=== PATIENT | male | born 1995 | race Caucasian/White ===

== ENCOUNTER → 2016-11-04 | Outpatient (CLI) | payer OTHER ==
[2016-11-04 12:32] LABS: BILIRUBIN,URINE NEGATIVE (NEGATIVE); KETONES,URINE NEGATIVE (NEGATIVE); LEUKOCYTE ESTERASE ,URINE NEGATIVE (NEGATIVE); NITRITE,URINE NEGATIVE (NEGATIVE); PH,URINE 7 (5-9); PROTEIN,URINE NEGATIVE (NEGATIVE); UROBILINOGEN,URINE NORMAL (NORMAL)
[2016-11-04 12:33] LABS: BASOPHILS % (AUTO) 0 % (0-10); EOSINOPHILS # (AUTO) 0.2 10^3/uL (0.0-0.3); EOSINOPHILS % (AUTO) 2 % (0-10); LYMPHOCYTES # (AUTO) 1.7 X 10^3 (1.0-4.0); LYMPHOCYTES % (AUTO) 19 % (12-44); MEAN CORPUSCULAR HEMOGLOBIN 29 PG (25-34); MEAN CORPUSCULAR HGB CONC 35 G/DL (32-36); MEAN CORPUSCULAR VOLUME 83 FL (80-99); MEAN PLATELET VOLUME 10.4 FL (7.4-10.4); MONOCYTES # (AUTO) 0.7 X 10^3 (0.0-1.0); MONOCYTES % (AUTO) 8 % (0-12); NEUTROPHILS # (AUTO) 6.4 X 10^3 (1.8-7.8); NEUTROPHILS % (AUTO) 71 % (42-75); PLATELET COUNT 234 10^3/uL (130-400); RED BLOOD COUNT 5.75 10^6/uL (4.35-5.85); RED CELL DISTRIBUTION WIDTH 12.5 % (10.0-14.5)
[2016-11-04 12:49] LABS: WBC,URINE RARE /HPF
[2016-11-04 13:00] LABS: ALANINE AMINOTRANSFERASE 22 U/L (0-55); ANION GAP 9 MMOL/L (5-14); ASPARTATE AMINO TRANSFERASE 20 U/L (5-34); BILIRUBIN,TOTAL 0.8 MG/DL (0.1-1.0); BLOOD UREA NITROGEN 14 MG/DL (7-18); BUN/CREATININE RATIO 13; CALCIUM 9.7 MG/DL (8.5-10.1); CARBON DIOXIDE 27 MMOL/L (21-32); CHLORIDE 105 MMOL/L (98-107); CHOLESTEROL 200 MG/DL (< 200); CREATININE SERUM 1.04 MG/DL (0.60-1.30); DIRECT LDL 144 MG/DL (1-129); GFR ESTIMATED > 60; GLUCOSE 85 MG/DL (70-105); POTASSIUM 3.8 MMOL/L (3.6-5.0); SODIUM 141 MMOL/L (135-145); TRIGLYCERIDES 128 MG/DL (<150); VLDL CHOLESTEROL 26 MG/DL (5-40)
[2016-11-04 13:19] LABS: THYROID STIMULATING HORMONE 1.06 UIU/ML (0.35-4.94)
[2016-11-05 07:09] LABS: HIV 1/2 INTERP See Footnote; HIV AG AB SCREEN Non-Reactive (Non-Reactive); SYPHILIS SCREEN PT Non-Reactive
[2016-11-06 15:39] LABS: NEISSERIA GONORRHEA DNA URINE Negative (Negative)
[2016-11-06 15:45] LABS: CHLAMYDIA DNA URINE Negative (Negative)
== END ==
LOC: LAB 11:58
PROVIDERS: ATTEND Family Medicine
DX: Z00.00 Encounter for general adult medical examination without abnormal findings (principal); E78.5 Hyperlipidemia, unspecified; Z83.3 Family history of diabetes mellitus; Z83.0 Family history of human immunodeficiency virus [HIV] disease; R03.0 Elevated blood-pressure reading, without diagnosis of hypertension
CPT/HCPCS: 36415; 80053; 80061; 81000; 84443; 85025; 86703; 86780; 87491; 87591

== ENCOUNTER 2017-06-04 14:15 | Day surgery (SDC) | payer OTHER ==
[~2017-06-04] VITALS: Ht 177.8 cm; Wt 94.8 kg
[2017-06-04] MEDS ORDERED: METO-370 PO (15:01)
[2017-06-04] MEDS ORDERED: IOHEXOL 350 MG/ML 100 ML (OMNIPAQUE 350) VIAL IV ONE (15:30)
[2017-06-04] MEDS ORDERED: NS 100 ML (IVPB) BAG IV ONE (15:30)
[2017-06-04 16:05] LABS: BASOPHILS % (AUTO) 0 % (0-10); EOSINOPHILS # (AUTO) 0.1 10^3/uL (0.0-0.3); EOSINOPHILS % (AUTO) 1 % (0-10); LYMPHOCYTES % (AUTO) 17 % (12-44); MEAN CORPUSCULAR HEMOGLOBIN 29 PG (25-34); MEAN CORPUSCULAR HGB CONC 35 G/DL (32-36); MEAN CORPUSCULAR VOLUME 83 FL (80-99); MEAN PLATELET VOLUME 10.3 FL (7.4-10.4); MONOCYTES # (AUTO) 0.9 X 10^3 (0.0-1.0); MONOCYTES % (AUTO) 8 % (0-12); NEUTROPHILS # (AUTO) 8.6 X 10^3 (1.8-7.8); NEUTROPHILS % (AUTO) 74 % (42-75); PLATELET COUNT 248 10^3/uL (130-400); RED BLOOD COUNT 5.41 10^6/uL (4.35-5.85); RED CELL DISTRIBUTION WIDTH 12.2 % (10.0-14.5); WHITE BLOOD COUNT 11.7 10^3/uL (4.3-11.0)
--- NOTE | 2017-06-04 16:11 | ED Abdominal Pain ---
General Chief Complaint: Abdominal/GI Problems Stated Complaint: PAIN IN APPENDIX Nursing Triage Note: PT C/O RLQ ABDOMINAL PAIN STARTING YESTERDAY MORNING. REPORTS PAIN WITH WALKING. DENIES NAUSEA, VOMITING. Sepsis Screen: No Definite Risk History of Present Illness Time Seen By Provider: 15:10 Initial Comments 22-year-old male presents for right lower quadrant pain. He reports that it began yesterday morning and has progressively gotten worse. He has had mild nausea and vomited once. He denies any diarrhea. Timing/Duration: 1-2 Days Severity/Quality: Moderate Location: RLQ Radiation: No Radiation Activities at Onset: None Modifying Factors: Improves With Resting Associated Symptoms: Nausea/Vomiting Allergies and Home Medications Allergies Coded Allergies: Penicillins (Unverified Allergy, Unknown, 06/04/17) kiwi (Verified Allergy, Unknown, Severe Rash, 06/04/17) tree nut (Unverified Allergy, Unknown, 06/04/17) Home Medications Cetirizine HCl 10 Mg Capsule, 10 MG PO HS PRN for allergies, (Reported) Metoprolol Succinate 50 Mg Tab.er.24h, 50 MG PO DAILY, (Reported) Review of Systems Constitutional: no symptoms reported, see HPI Gastrointestinal: See HPI, Abdominal Pain, Nausea, Poor Appetite, Rectal Bleeding Genitourinary: No Symptoms Reported, See HPI All Other Systems Reviewed Negative Unless Noted: Yes Past Bddoala-Bkxdue-Ysuhny Hx Patient Social History Recent Foreign Travel: No Contact w/Someone Who Travel: No Recent Infectious Disease Expo: No Recent Hopitalizations: No Seasonal Allergies Seasonal Allergies: No Surgeries History of Surgeries: Yes (DENTAL) Respiratory History of Respiratory Disorde: No Cardiovascular History of Cardiac Disorders: Yes Cardiac Disorders: Hypertension Neurological History of Neurological Disord: No Reproductive System Sexually Transmitted Disease: No HIV/AIDS: No Genitourinary History of Genitourinary Disor: No Gastrointestinal History of Gastrointestinal Di: No Musculoskeletal History of Musculoskeletal Dis: No Endocrine History of Endocrine Disorders: No HEENT History of HEENT Disorders: No Cancer History of Cancer: No Psychosocial History of Psychiatric Problem: No Blood Transfusions History of Blood Disorders: No Adverse Reaction to a Blood Tr: No Physical Exam Vital Signs VS - Last 72 Hours, by Label 06/04/17 14:54 Temp 99.2 Pulse 78 Resp 18 B/P (MAP) 149/72 Pulse Ox 99 O2 Delivery Room Air Capillary Refill : Less Than 3 Seconds General Appearance: WD/WN, no apparent distress HEENT: PERRL/EOMI, normal ENT inspection, TMs normal, pharynx normal Neck: non-tender, full range of motion, supple, normal inspection Respiratory: chest non-tender, lungs clear, normal breath sounds Cardiovascular: normal peripheral pulses, regular rate, rhythm, no murmur Gastrointestinal: normal bowel sounds, soft, No distended, No guarding, rebound , tenderness (right lower quadrant), other (+ heel tap, obturator, Rosving's and Psoas Sign) Neurologic/Psychiatric: no motor/sensory deficits, alert, normal mood/affect, oriented x 3 Skin: normal color, warm/dry Lymphatic: no adenopathy Progress/Results/Core Measures Results/Orders Lab Results Laboratory Tests Test 06/04/17 15:55 06/04/17 16:26 Range/Units White Blood Count 11.7 H 4.3-11.0 10^3/uL Red Blood Count 5.41 4.35-5.85 10^6/uL Hemoglobin 15.7 13.3-17.7 G/DL Hematocrit 45 40-54 % Mean Corpuscular Volume 83 80-99 FL Mean Corpuscular Hemoglobin 29 25-34 PG Mean Corpuscular Hemoglobin Concent 35 32-36 G/DL Red Cell Distribution Width 12.2 10.0-14.5 % Platelet Count 248 130-400 10^3/uL Mean Platelet Volume 10.3 7.4-10.4 FL Neutrophils (%) (Auto) 74 42-75 % Lymphocytes (%) (Auto) 17 12-44 % Monocytes (%) (Auto) 8 0-12 % Eosinophils (%) (Auto) 1 0-10 % Basophils (%) (Auto) 0 0-10 % Neutrophils # (Auto) 8.6 H 1.8-7.8 X 10^3 Lymphocytes # (Auto) 2.0 1.0-4.0 X 10^3 Monocytes # (Auto) 0.9 0.0-1.0 X 10^3 Eosinophils # (Auto) 0.1 0.0-0.3 10^3/uL Basophils # (Auto) 0.0 0.0-0.1 10^3/uL Sodium Level 141 135-145 MMOL/L Potassium Level 3.7 3.6-5.0 MMOL/L Chloride Level 103 98-107 MMOL/L Carbon Dioxide Level 25 21-32 MMOL/L Anion Gap 13 5-14 MMOL/L Blood Urea Nitrogen 8 7-18 MG/DL Creatinine 1.09 0.60-1.30 MG/DL Estimat Glomerular Filtration Rate > 60 BUN/Creatinine Ratio 7 Glucose Level 86 70-105 MG/DL Calcium Level 9.8 8.5-10.1 MG/DL Total Bilirubin 0.7 0.1-1.0 MG/DL Aspartate Amino Transf (AST/SGOT) 21 5-34 U/L Alanine Aminotransferase (ALT/SGPT) 21 0-55 U/L Alkaline Phosphatase 95 40-136 U/L Total Protein 8.4 H 6.4-8.2 GM/DL Albumin 4.8 H 3.2-4.5 GM/DL Urine Color YELLOW Urine Clarity CLEAR Urine pH 6.5 5-9 Urine Specific Blair 1.010 L 1.016-1.022 Urine Protein NEGATIVE NEGATIVE Urine Glucose (UA) NEGATIVE NEGATIVE Urine Ketones NEGATIVE NEGATIVE Urine Nitrite NEGATIVE NEGATIVE Urine Bilirubin NEGATIVE NEGATIVE Urine Urobilinogen NORMAL NORMAL MG/DL Urine Leukocyte Esterase NEGATIVE NEGATIVE Urine RBC (Auto) NEGATIVE NEGATIVE Urine RBC NONE /HPF Urine WBC NONE /HPF Urine Squamous Epithelial Cells NONE /HPF Urine Crystals NONE /LPF Urine Bacteria NEGATIVE /HPF Urine Casts NONE /LPF Urine Mucus NEGATIVE /LPF Urine Culture Indicated NO My Orders Orders - ASHLEY BOATENG Cbc With Automated Diff (06/04/17 15:22) Comprehensive Metabolic Panel (06/04/17 15:22) Ua Culture If Indicated (06/04/17 15:22) Ct Abd/Pelv W (Appendicitis) (06/04/17 15:22) Saline Lock/Iv-Start (06/04/17 15:22) Iohexol Injection (Omnipaque 350 Mg/Ml 1 (06/04/17 15:30) Ns (Ivpb) (Sodium Chloride 0.9% Ivpb Bag (06/04/17 15:30) Pharmacy Communication (Pharmacy Communi (06/04/17 15:24) Medications Given in ED Current Medications Medications Dose Ordered Sig/Troy Route Start Time Stop Time Status Last Admin Dose Admin Iohexol 100 ml ONCE ONCE IV 06/04/17 15:30 06/04/17 15:31 DC 06/04/17 16:20 100 ML Sodium Chloride 100 ml ONCE ONCE IV 06/04/17 15:30 06/04/17 15:31 DC 06/04/17 16:20 80 ML Vital Signs/I&O Vital Sign - Last 12Hours 06/04/17 14:54 Temp 99.2 Pulse 78 Resp 18 B/P (MAP) 149/72 Pulse Ox 99 O2 Delivery Room Air Blood Pressure Mean: 97 Progress Note : Time: 15:10 Progress Note Initial evaluation completed, recommended CT abdomen with contrast, labs and reevaluation. 1540 Dr. Hoffman here for evaluation of patient, we'll notify when CT and labs are completed. 1620 CT results positive for appendicitis, results discussed with the patient and his mother. His last fluid intake was at 12:30 today he had sips of Dr. Mishra. All questions answered for the patient and his mother. [address] Hoffman of CT results, recommended admission for observation, surgery at 1830 today. He will see the patient and make additional orders. Bridge orders written. Diagnostic Imaging Diagonstic Imaging: CT Plain Films/CT/US/NM/MRI: abdomen, pelvis Comments NAME: CL [facility] REC#: [id number] PT STATUS: REG ER : 1995 PHYSICIAN: ASHLEY BOATENG ADMIT DATE: 06/04/17/ER Draft Date of Exam:06/04/17 CT ABD/PELV W (APPENDICITIS) INDICATION: Right lower quadrant tenderness, loss of appetite, diarrhea for a day. EXAMINATION: CT of the abdomen and pelvis with contrast, 06/04/2017. COMPARISON: None. FINDINGS: Within the lung bases no acute abnormality is appreciated. The abdomen and pelvis demonstrate no evidence for an acute process in the liver; however, there is mild fatty infiltration. Additionally, there is a lesion in the anterior aspect of the right lobe of the liver which has Hounsfield units slightly greater than expected for a cyst; however, no precontrast imaging was obtained. The area measures approximately 3.1 cm in greatest dimension. The spleen is unremarkable. The adrenal glands and the pancreas are normal in appearance. The kidneys contain tiny cystic appearing areas too small to characterize. No acute process is seen in either kidney. Several somewhat prominent lymph nodes are noted within the right lower quadrant, which are likely reactive. The largest is approximately 1.7 cm in greatest dimension. It contains hyperdensities consistent with appendicolith. Free air or abscess is appreciated. A small amount of fluid is seen tracking into the pelvis which is likely reactive. The remaining bowel loops appear unremarkable. There is no significant adenopathy. The osseous structures demonstrate no acute abnormalities. IMPRESSION: 1. Findings consistent with acute appendicitis with surrounding inflammation and appendicolith noted. No abscess or free air is seen. 2. Nonspecific cystic lesion in the right lobe of the liver, anteriorly. Dedicated imaging of this area for better characterization, either with sonography or a dedicated liver protocol CT, could be performed on a nonemergent basis. Dictated on workstation # [id number] Dict: 06/04/17 1613 Trans: 06/04/17 1629 [facility] [id number] Interpreted by: DONOVAN CASTLE MD Electronically signed by: Reviewed: Reviewed by Me Departure Impression Impression: Primary Impression: Appendicitis Qualified Codes: K35.3 - Acute appendicitis with localized peritonitis Disposition: 09 ADMITTED INPATIENT Condition: Stable Admissions Decision to Admit Reason: Admit from ER (General) Decision to Admit/Date: Jun 04, 2017 Time/Decision to Admit Time: 16:30 Departure-Patient Inst. Referrals: JEREMIAS LAYTON DO (PCP/Family) Primary Care Physician Copy Copies To 1: JEREMIAS LAYTON AMY ARNP Jun 04, 2017 16:11
[2017-06-04 16:23] LABS: ALANINE AMINOTRANSFERASE 21 U/L (0-55); ALBUMIN 4.8 GM/DL (3.2-4.5); ANION GAP 13 MMOL/L (5-14); ASPARTATE AMINO TRANSFERASE 21 U/L (5-34); BILIRUBIN,TOTAL 0.7 MG/DL (0.1-1.0); BLOOD UREA NITROGEN 8 MG/DL (7-18); BUN/CREATININE RATIO 7; CALCIUM 9.8 MG/DL (8.5-10.1); CARBON DIOXIDE 25 MMOL/L (21-32); CHLORIDE 103 MMOL/L (98-107); CREATININE SERUM 1.09 MG/DL (0.60-1.30); GFR ESTIMATED > 60; GLUCOSE 86 MG/DL (70-105); POTASSIUM 3.7 MMOL/L (3.6-5.0); SODIUM 141 MMOL/L (135-145); TOTAL PROTEIN 8.4 GM/DL (6.4-8.2)
--- NOTE | 2017-06-04 16:29 | Diagnostic Imaging Report ---
INDICATION: Right lower quadrant tenderness, loss of appetite, diarrhea for a day. EXAMINATION: CT of the abdomen and pelvis with contrast, 06/04/2017. COMPARISON: None. FINDINGS: Within the lung bases no acute abnormality is appreciated. The abdomen and pelvis demonstrate no evidence for an acute process in the liver; however, there is mild fatty infiltration. Additionally, there is a lesion in the anterior aspect of the right lobe of the liver which has Hounsfield units slightly greater than expected for a cyst; however, no precontrast imaging was obtained. The area measures approximately 3.1 cm in greatest dimension. The spleen is unremarkable. The adrenal glands and the pancreas are normal in appearance. The kidneys contain tiny cystic appearing areas too small to characterize. No acute process is seen in either kidney. Several somewhat prominent lymph nodes are noted within the right lower quadrant, which are likely reactive. The largest is approximately 1.7 cm in greatest dimension. It contains hyperdensities consistent with appendicolith. Free air or abscess is appreciated. A small amount of fluid is seen tracking into the pelvis which is likely reactive. The remaining bowel loops appear unremarkable. There is no significant adenopathy. The osseous structures demonstrate no acute abnormalities. IMPRESSION: 1. Findings consistent with acute appendicitis with surrounding inflammation and appendicolith noted. No abscess or free air is seen. 2. Nonspecific cystic lesion in the right lobe of the liver, anteriorly. Dedicated imaging of this area for better characterization, either with sonography or a dedicated liver protocol CT, could be performed on a nonemergent basis. Dictated by: Dictated on workstation # [id number]
[2017-06-04 16:35] LABS: BILIRUBIN,URINE NEGATIVE (NEGATIVE); KETONES,URINE NEGATIVE (NEGATIVE); LEUKOCYTE ESTERASE ,URINE NEGATIVE (NEGATIVE); NITRITE,URINE NEGATIVE (NEGATIVE); PH,URINE 6.5 (5-9); PROTEIN,URINE NEGATIVE (NEGATIVE); UROBILINOGEN,URINE NORMAL (NORMAL)
[2017-06-04] MEDS ORDERED: LACTATED RINGERS 1,000 ML IV ONE (16:35)
[2017-06-04 17:15] VITALS: BP 137/72
[2017-06-04] MEDS ORDERED: fentaNYL INJECTION 100 MCG/2 ML AMP IVP PRN (17:45)
[2017-06-04] MEDS ORDERED: ONDANSETRON 4 MG/2 ML (SDV) Z0FRAN IVP PRN ×2 (17:45→19:15)
[2017-06-04] MEDS ORDERED: BUP/EPI 0.5% 1:200,000 (MARCAINE) 10ML VIAL IJ ONE (17:49)
[2017-06-04] MEDS ORDERED: CETI10CA PO (17:49)
[2017-06-04] MEDS: LACTATED RINGERS 1,000 ML IV SCH ×2 (17:52→20:01)
[2017-06-04] MEDS ORDERED: CLINDAMYCIN 600 MG/4ML (CLEOCIN) VIAL ONE (17:57)
[2017-06-04] MEDS ORDERED: NS (IVPB) 50 ML ONE (17:58)
[2017-06-04] MEDS ORDERED: MIDAZOLAM 2 MG/2 ML (VERSED) VIAL ONE (18:06)
[2017-06-04] MEDS: LACTATED RINGERS 1,000 ML IV PRN ×2 (18:10→19:05)
[2017-06-04] MEDS ORDERED: metroNIDAZOLE 500MG/100ML IVPB 100 ML IV ONE (18:15)
[2017-06-04] MEDS ORDERED: CLINDAMYCIN INJECTION 600 MG in NS (IVPB) 50 ML IV ONE (18:15)
--- NOTE | 2017-06-04 18:28 | History & Physicial ---
History of Present Illness History of Present Illness Reason for visit/HPI right lower quadrant pain, anorexia and nausea of 24 hours duration. Clinical examination and CT scan confirm acute appendicitis Date of Admission Jun 04, 2017 at 4:30 pm Date Seen by Provider: Jun 04, 2017 Time Seen by Provider: 15:24 I consulted on this patient on 06/04/17 18:24 Attending Physician Ana Cristina Hoffman MD Admitting Physician Leyda Butler DO Consult Allergies and Home Medications Allergies Coded Allergies: Penicillins (Unverified Allergy, Unknown, 06/04/17) kiwi (Verified Allergy, Unknown, Severe Rash, 06/04/17) tree nut (Unverified Allergy, Unknown, 06/04/17) Home Medications Cetirizine HCl 10 Mg Capsule, 10 MG PO HS PRN for allergies, (Reported) Metoprolol Succinate 50 Mg Tab.er.24h, 50 MG PO DAILY, (Reported) Past Ohitybi-Ikkuzx-Lwblgm Hx Patient Social History Marrital Status: single Employed/Student: employed Alcohol Use: Occasionally Uses Recreational Drug Use: No Smoking Status: Never a Smoker Physical Abuse Screen: No Sexual Abuse: No Recent Foreign Travel: No Contact w/other who traveled: No Recent Hopitalizations: No Recent Infectious Disease Expo: No Immunizations Up To Date Date of Influenza Vaccine: May 04, 2017 Seasonal Allergies Seasonal Allergies: No Surgeries Yes ([place] teeth removal) Respiratory No Cardiovascular Yes Hypertension Neurological No Reproductive System Sexually Transmitted Disease: No HIV/AIDS: No Genitourinary No Gastrointestinal No Musculoskeletal No Endocrine History of Endocrine Disorders: No HEENT History of HEENT Disorders: No Cancer No Psychosocial History of Psychiatric Problem: No Integumentary History of Skin or Integumenta: No Blood Transfusions History of Blood Disorders: No Adverse Reaction to a Blood Tr: No Family Medical History Family Hx: Alcoholism Arthritis Cardiovascular disease Diabetes mellitus Hypercholesterolemia Hypertension Severe allergy Constitutional: malaise EENTM: no symptoms reported Respiratory: no symptoms reported Cardiovascular: no symptoms reported Gastrointestinal: see HPI Genitourinary: no symptoms reported Musculoskeletal: no symptoms reported Skin: no symptoms reported Psychiatric/Neurological: No Symptoms Reported Physical Exam Vital Signs Vital Sign - Last 12Hours 06/04/17 14:54 Temp 99.2 Pulse 78 Resp 18 B/P (MAP) 149/72 Pulse Ox 99 O2 Delivery Room Air Capillary Refill : Less Than 3 Seconds General Appearance: Mild Distress Neck: Normal Inspection Gastrointestinal: Tenderness Extremity: Normal Inspection Neurologic/Psychiatric: Alert, Oriented x3 Skin: Warm/Dry Comments localized tenderness over the right lower quadrant. Assessment/Plan Assessment and Plan gentleman with acute appendicitis. Offered laparoscopic appendectomy and reviewed the details. Expected recovery time, complications of wound infection , intra-abdominal abscess etc reviewed thoroughly. Seems to be in agreement to proceed Problems: Admission Diagnosis acute appendicitis Clinical Quality Measures DVT/VTE Risk/Contraindication: Risk Factor Score Per Nursin RFS Level Per Nursing on Admit: 1=Low/No VTE PPX ANA CRISTINA HOFFMAN MD Jun 04, 2017 6:27 pm
--- NOTE | 2017-06-04 18:29 | Progress Note-Pre Operative ---
Pre-Operative Progress Note H&P Reviewed The H&P was reviewed, patient examined and no changes noted. Date Seen by Provider: Jun 04, 2017 Time Seen by Provider: 15:24 Date H&P Reviewed: Jun 04, 2017 Time H&P Reviewed: 18:29 Pre-Operative Diagnosis: Acute appendicitis ANA CRISTINA GARY MD Jun 04, 2017 6:29 pm
[2017-06-04] MEDS ORDERED: MEPERIDINE (DEMEROL) INJ 50 MG/ML ONE (18:50)
[2017-06-04] MEDS ORDERED: proPOfol 200 MG/20 ML (DIPRIVAN) VIAL IV ONE (18:51)
[2017-06-04] MEDS ORDERED: LIDOCAINE PF 2% 5 ML (XYLOCAINE) VIAL ONE (18:51)
[2017-06-04] MEDS ORDERED: KETOROLAC 30 MG/ML VIAL ONE (18:51)
[2017-06-04] MEDS ORDERED: morphine INJ 10 MG/ML 1ML (SYR OR VIAL) ONE (18:51)
[2017-06-04] MEDS ORDERED: DEXAMETHASONE 10 MG/ML (DECADRON) 1 ML VIAL ONE (18:51)
[2017-06-04] MEDS ORDERED: meTOprolol 5 MG/5 ML (LOPRESSOR) VIAL ONE (18:51)
[2017-06-04] MEDS ORDERED: PROMETHAZINE INJ 25 MG/ML (PHENERGAN) AMP ONE (18:51)
[2017-06-04] MEDS ORDERED: SEVOFLURANE (ULTANE) 15 ML INHAL SOLN ONE ×3 (18:51→19:59)
[2017-06-04] MEDS ORDERED: ROCURONIUM 50 MG/5 ML (ZEMURON) VIAL IV ONE (18:52)
[2017-06-04] MEDS ORDERED: HYDROmorphone (DILAUDID) 2 MG/ML VIAL ONE (18:52)
[2017-06-04] MEDS ORDERED: KETOROLAC 30 MG/ML VIAL IVP ONE (19:05)
[2017-06-04] MEDS ORDERED: MEPERIDINE (DEMEROL) INJ 50 MG/ML IVP PRN (19:15)
[2017-06-04] MEDS ORDERED: PROMETHAZINE INJ 25 MG/ML (PHENERGAN) AMP IVP PRN (19:15)
[2017-06-04] MEDS ORDERED: HYDROmorphone (DILAUDID) 2 MG/ML VIAL IVP PRN (19:15)
[2017-06-04] MEDS ORDERED: morphine INJ 10 MG/ML 1ML (SYR OR VIAL) IVP PRN (19:15)
--- NOTE | 2017-06-04 19:38 | Operative Report ---
Operative Report Date of Procedure/Surgery Jun 04, 2017 Surgeon (s) ANA CRISTINA GARY MD Soot Blower (s): N/A Post-Operative Diagnosis 1. Acute retrocecal appendicitis 2. Small left inguinal hernia 3. Cystic lesion on the right lobe of liver Procedure Performed Laparoscopic appendectomy Description of Procedure Anesthesia Type: General Estimated blood loss (mL): Minimal Specimen(s) collected/removed appendix Description of the Procedure Indication for procedure: This young man presented with acute appendicitis confirmed on CT scan. He was offered prompt laparoscopic appendectomy. A cystic lesion, about 3 cm in diameter, not conforming to a simple hepatic cyst, was also discovered on the right lobe of the liver. Informed consent was obtained after reviewing the operative details and complications of wound infection and intra-abdominal abscess. Description of the procedure: He was placed supine on the operative table and general anesthesia induced using an endotracheal tube. 600 mg of clindamycin and 500 mg of Flagyl were administered intravenously as prophylaxis against wound infection. Sequential compression devices were placed around his legs, to minimize the risk of venous thrombosis. Abdomen was prepared and draped in the usual sterile manner. A supraumbilical incision was made and the linea alba incised vertically. A Donovan cannula was placed and carbon dioxide insufflated to an intra-abdominal pressure of 15 mmHg. Anatomy was visualized using a 30 10 mm laparoscope. An acutely inflamed and turgid appendix in a retrocecal position was confirmed. There was no perforation. The lesion on the right lobe of the liver found on the CT scan was confirmed as well. Photodocumentation was obtained. This may require further radiologic evaluation once he recovers from surgery. A small left inguinal hernia was also encountered. The base of the appendix was and transected using an Endo JESS vascular stapler. Mesoappendix was controlled using a combination of Harmonic scalpel and Endo JESS rancho. Slight oozing from the staple line was controlled using 5 mm likely. The area was then irrigated with saline and the appendix placed in an Endo Catch bag, to be removed via the supraumbilical trocar site. The fascia over this incision was closed using #1 Vicryl. Skin incisions were closed using 4-0 Vicryl, in a subcuticular fashion. 0.5 percent Marcaine with epinephrine was infiltrated along the incisions, both preemptively and at the end of the operation. He tolerated the procedure well, was extubated in the operating room and taken to the recovery room in a stable condition. Findings of the Procedure See op report Allergies and Home Medications Allergies Coded Allergies: Penicillins (Unverified Allergy, Unknown, 06/04/17) kiwi (Verified Allergy, Unknown, Severe Rash, 06/04/17) tree nut (Unverified Allergy, Unknown, 06/04/17) Home Medications Cetirizine HCl 10 Mg Capsule, 10 MG PO HS PRN for allergies, (Reported) Metoprolol Succinate 50 Mg Tab.er.24h, 50 MG PO DAILY, (Reported) Copy Copies To 1: JEREMIAS LAYTON XAVIER M MD Jun 04, 2017 7:38 pm
[2017-06-04] MEDS ORDERED: HYDR-3812 PO (19:42)
--- NOTE | 2017-06-04 19:43 | Discharge Inst-Simple/Standard ---
Discharge Inst-Standard Discharge Medications New, Converted or Re-Newed RX: RX on Chart Patient Instructions/Follow Up Plan of Care/Instructions/FU: Band-Aids off in 48 hours. Incentive spirometry. follow-up in 10 days Activity as Tolerated: Yes Discharge Diet: No Restrictions ANA CRISTINA GARY MD Jun 04, 2017 7:43 pm
[2017-06-04] MEDS ORDERED: PATIENT MAY USE OWN MEDS, ALL PO SCH (19:45)
[2017-06-04] MEDS ORDERED: ONDANSETRON 4 MG/2 ML (SDV) Z0FRAN IV PRN (19:45)
[2017-06-04] MEDS ORDERED: fentaNYL INJECTION 100 MCG/2 ML AMP IV PRN (19:45)
[2017-06-04] MEDS ORDERED: HYDROcodone/APAP 5 MG/325 MG (LORTAB) TAB PO PRN (19:45)
[2017-06-04 21:00] VITALS: BP 132/76
[2017-06-05] VITALS: BP 117/58
[2017-06-05] MEDS: LACTATED RINGERS 1,000 ML IV SCH ×2 (01:32→03:38)
[2017-06-05 04:00] VITALS: BP 127/60
[2017-06-05] MEDS ORDERED: KETOROLAC 15 MG/ML VIAL IV SCH (06:00)
[2017-06-05] MEDS ORDERED: metroNIDAZOLE 500MG/100ML IVPB 100 ML IV SCH (07:00)
[2017-06-05 08:00] VITALS: BP 128/58
[2017-06-05] MEDS ORDERED: CLINDAMYCIN INJECTION 600 MG in NS (IVPB) 50 ML IV SCH (08:00)
--- NOTE | 2017-06-05 13:08 | Progress Note-Standard ---
Standard Progress Note Progress Notes/Assess & Plan Date Seen by Provider: Jun 05, 2017 Time Seen by Provider: 12:32 Progress/Assessment & Plan doing well. Incisions dry. Could be discharged home. The cystic lesion on the liver would be evaluated radiologically, as an outpatient Final Diagnosis acute appendicitis ANA CRISTINA GARY MD Jun 05, 2017 1:08 pm
== END 2017-06-05 13:10 | disposition home or self-care (01) ==
LOC: EDUNIT# 14:15 → ER 14:16 → 4TH 16:30 → SDC 16:30 → UNDOADMOB 16:30 → 4TH 16:30 → UNDODISOB 06-05 13:10 → SDC 06-05 13:10
PROVIDERS: ATTEND Surgery
DX: K35.80 Unspecified acute appendicitis (principal); K40.90 Unilateral inguinal hernia, without obstruction or gangrene, not specified as recurrent; K76.89 Other specified diseases of liver; I10 Essential (primary) hypertension; Z79.899 Other long term (current) drug therapy; Z88.0 Allergy status to penicillin
CPT/HCPCS: 36415; 74177; 80053; 81000; 85025; 88304; 94664; 96360

== ENCOUNTER → 2017-06-29 | Outpatient (CLI) | payer OTHER ==
[~2017-06-29] MED LIST: CETI10CA PO; HYDR-3812 PO; METO-370 PO
--- NOTE | 2017-06-29 09:34 | Diagnostic Imaging Report ---
EXAMINATION: Ultrasound of the liver. INDICATION: Liver lesion seen on recent CT scan. FINDINGS: The visualized portions of the pancreas appear unremarkable. The liver is fairly homogeneous. There is a simple cyst seen anteriorly matching the CT scan findings measuring 2 x 3 x 1.7 CM. No solid mass is identified. The gallbladder demonstrates no stones or wall thickening. CBD is 5 mm in caliber. The right kidney is 11.1 CM in length. No hydronephrosis. No fluid collection in the upper right side of the abdomen. Sonographic Granger sign is reportedly negative. IMPRESSION: 3 cm simple hepatic cysts. Dictated by: Dictated on workstation # [id number]
== END ==
LOC: RAD 06:48
PROVIDERS: ATTEND Surgery
DX: K76.89 Other specified diseases of liver (principal)
CPT/HCPCS: 76705